=== PATIENT | male | born 1980 | race Native Hawaiian/Other Pacific Islander ===

== ENCOUNTER 2024-01-29 09:12 | Emergency (ER) | payer BC ==
[~2024-01-29] VITALS: Ht 185.4 cm; Wt 66.3 kg
[2024-01-29] MEDS: IV NS 0.9% 1,000 ML BAG IV ONE (09:50)
[2024-01-29 09:57] LABS: BASOPHILS % (AUTO) 0.6 % (0.0-2.0); EOSINOPHILS # (AUTO) 0.1 K/uL (0.0-0.7); EOSINOPHILS % (AUTO) 1.5 % (0.0-6.0); HEMATOCRIT 40 % (39-51); HEMOGLOBIN 13.6 g/dL (13.5-17.5); LYMPHOCYTES # (AUTO) 2.1 K/uL (0.8-4.8); LYMPHOCYTES % (AUTO) 26.2 % (20.0-44.0); MEAN CORPUSCULAR HEMOGLOBIN 30 PG (26.0-33.0); MEAN CORPUSCULAR HGB CONC 34 g/dl (31.0-36.0); MEAN CORPUSCULAR VOLUME 90 fL (80-96); MONOCYTES # (AUTO) 0.5 K/uL (0.1-1.30); MONOCYTES % (AUTO) 6.5 % (2.0-12.0); NEUTROPHILS # (AUTO) 5.2 K/uL (1.8-8.9); NEUTROPHILS % (AUTO) 65.2 % (43.0-81.0); PLATELET COUNT (AUTO) 261 K/uL (150-450); RED BLOOD CELL COUNT(AUTO) 4.48 MIL/uL (4.5-6.0); RED CELL DISTRIBUTION WIDTH 13.6 % (11.5-15.0)
[2024-01-29 09:58] VITALS: TEMP 97.6
[2024-01-29 10:15] LABS: ALANINE AMINOTRANSFERASE 51 U/L (12-78); ALBUMIN 3.1 g/dL (3.4-5.0); ALKALINE PHOSPHATASE 98 U/L (46-116); ASPARTATE AMINOTRANSFERASE 27 U/L (15-37); BILIRUBIN,DIRECT 0.1 mg/dL (0.0-0.2); BILIRUBIN,TOTAL 0.3 mg/dL (0.2-1.0); CALCIUM, SERUM 8.5 mg/dL (8.5-10.1); CARBON DIOXIDE 31 mmol/L (21-32); CHLORIDE 105 mmol/L (98-107); CREATININE 0.8 mg/dL (0.6-1.3); GLUCOSE 108 mg/dL (74-106); POTASSIUM 3.7 mmol/L (3.5-5.1); SODIUM SERUM 141 mmol/L (136-145); TOTAL PROTEIN, SERUM 6.6 g/dL (6.4-8.2); UREA NITROGEN, BLOOD 15 mg/dL (7-18)
[2024-01-29 11:30] LABS: APPEARANCE,URINE CLEAR (CLEAR); BILIRUBIN,URINE NEGATIVE (NEGATIVE); BLOOD, URINE NEGATIVE Ery/uL (NEGATIVE); COLOR,URINE YELLOW (YELLOW); KETONES,URINE NEGATIVE (NEGATIVE); LEUKOCYTE ESTERASE ,URINE NEGATIVE (NEGATIVE); NITRITE, URINE NEGATIVE (NEGATIVE); PH,URINE 6.5 (5.0-8.0); PROTEIN,URINE NEGATIVE (NEGATIVE); UGLUCOSE 3+ mg/dL (NEGATIVE); UROBILINOGEN,URINE 0.2 EU/dL (0.2)
[2024-01-29 12:01] LABS: ADD URINE CULTURE NO; BACTERIA,URINE Rare /HPF (None Seen); RBC,URINE 0-2 /HPF (0-2); SQUAMOUS EPITHELIAL CELL,UR None Seen /HPF (None Seen)
[2024-01-29] MEDS: IV NS 0.9% 500 ML BAG IV ONE (13:46)
[2024-01-29 14:55] VITALS: BP 110/74; O2SAT 98
== END 2024-01-29 14:30 | disposition home or self-care (01) ==
LOC: ER 09:21
DX: I95.9 Hypotension, unspecified (principal); F19.10 Other psychoactive substance abuse, uncomplicated; R07.9 Chest pain, unspecified
CPT/HCPCS: 99285; 96360; 71045; 93005; 85025; 80048; 80076; 81001; 36415; 84484; 82962 ×4; J7030

== ENCOUNTER 2024-02-19 19:55 | Emergency (ER) | payer BC ==
[~2024-02-19] VITALS: Ht 185.4 cm; Wt 83.9 kg
[2024-02-19] MEDS ORDERED: CEFTRIAXONE 1 G VIAL ONE (20:23)
[2024-02-19] MEDS ORDERED: SULFAMETH/TRIMETH 800/160 MG 1 UDTAB TABLET ONE (20:23)
[2024-02-19] MEDS ORDERED: LIDOCAINE 1% INJ 50 ML MDV IJ ONE (20:23)
[2024-02-19] MEDS: SULFAMETH/TRIMETH 800/160 MG 1 UDTAB TABLET PO ONE (20:30)
[2024-02-19] MEDS: CEFTRIAXONE 1 G VIAL IM ONE (20:30)
[2024-02-19] MEDS ORDERED: CEPH500T PO (20:47)
[2024-02-19] MEDS ORDERED: IBUP-1953 PO (20:48)
[2024-02-19] MEDS ORDERED: SULF1TAB48 PO (20:48)
[2024-02-19] MEDS ORDERED: ACETAMINOPHEN ES 500 MG TABLET ONE (20:58)
[2024-02-19] MEDS ORDERED: IBUPROFEN 400 MG TABLET ONE (20:58)
[2024-02-19] MEDS: ACETAMINOPHEN ES 500 MG TABLET PO ONE (20:59)
[2024-02-19] MEDS: IBUPROFEN 400 MG TABLET PO ONE (20:59)
[2024-02-19 21:13] VITALS: BP 109/84; TEMP 98.5; O2SAT 98
== END 2024-02-19 21:13 | disposition home or self-care (01) ==
LOC: ER 19:59
DX: E10.9 Type 1 diabetes mellitus without complications (principal); L03.116 Cellulitis of left lower limb; Z79.4 Long term (current) use of insulin
CPT/HCPCS: 99284; 96372; 73630; J3490; J0696